=== PATIENT | male | born 1970 | race Caucasian/White ===

== ENCOUNTER 2023-11-22 20:12 | Observation (INO) ==
[2023-11-22 20:44] LABS: ABS Eosinophils 0.2 10^3/uL (0.0-0.5); ABS Lymphocytes 3.4 10^3/uL (1.0-4.8); ABS Monocytes 0.6 10^3/uL (0.0-1.1); ABS Neutrophils 3.1 10^3/uL (1.5-7.6); ABS Nucleated RBC 0.01 10^3/ul; Hematocrit 43.9 % (38-53); Hemoglobin 15.2 g/dL (13.2-16.3); Lymphocyte % 46.1 %; Mean Corpuscular Hemoglobin 33.1 pg (27-33); Mean Corpuscular Hgb Conc 34.5 g/dL (31-36); Mean Corpuscular Volume 95.9 fL (80-97); Mean Platelet Volume 8.1 fL (7.5-11.2); Nucleated Red Blood Cells % 0.2 %/100WBC (0.0-0.8); Platelet Count 275 10^3/uL (150-450); Red Blood Count 4.58 10^6/uL (4.06-5.63); Red Cell Distribution Width 13.4 % (12-17); White Blood Count 7.5 10^3/uL (3.6-10.2)
[2023-11-22 21:03] LABS: INR 0.99 (0.83-1.13)
[2023-11-22 21:30] LABS: Albumin 4.2 g/dL (3.2-5.2); Albumin/Globulin Ratio 1.8 (1-3); Calcium 9.5 mg/dL (8.6-10.3); Creatinine, Serum 1.21 mg/dL (0.67-1.17); Globulin 2.3 g/dL (2-4); Potassium 4.5 mmol/L (3.5-5.0); Total Bilirubin 0.4 mg/dL (0.2-1.0); Total Protein 6.5 g/dL (6.4-8.9); eGFR CKD-EPI 71.2 (>60)
[2023-11-22 21:45] LABS: TSH Ultra Thyroid Stim Horm 4.04 mcIU/mL (0.34-5.60)
[2023-11-22 22:20] LABS: High Sensitivity Troponin 1 Hr 7 pg/mL (<20)
[2023-11-23 07:32] LABS: Hematocrit 44.5 % (38-53); Hemoglobin 15.1 g/dL (13.2-16.3); Mean Corpuscular Hemoglobin 32.5 pg (27-33); Mean Corpuscular Hgb Conc 33.9 g/dL (31-36); Mean Platelet Volume 8.5 fL (7.5-11.2); Platelet Count 263 10^3/uL (150-450); Red Blood Count 4.64 10^6/uL (4.06-5.63); White Blood Count 7.3 10^3/uL (3.6-10.2)
[2023-11-23 08:14] LABS: Calcium 9.4 mg/dL (8.6-10.3); Creatinine, Serum 1.09 mg/dL (0.67-1.17); Potassium 4.4 mmol/L (3.5-5.0); eGFR CKD-EPI 80.7 (>60)
[2023-11-23 13:17] VITALS: BP 109/70
== END 2023-11-23 13:18 | disposition home or self-care (01) ==
LOC: EDHOLD 20:12 → ED 20:12 → SUATTDRO 11-23 02:55 → EDHOLD 11-23 13:17
PROVIDERS: ADMIT Hospitalist; ATTEND Internal Medicine